=== PATIENT | male | born 1995 | race Caucasian/White ===

== ENCOUNTER → 2017-06-04 | Outpatient (CLI) | payer MEDICAID | LOC: CANPRECLI → M OUTALCOH 12:44 | PROVIDERS: ATTEND Psychiatry & Neurology Psychiatry | DX: Z53.9 Procedure and treatment not carried out, unspecified reason (principal) ==

== ENCOUNTER → 2017-06-10 | Outpatient (CLI) | payer MEDICAID | LOC: M OUTALCOH 07:39 | PROVIDERS: ATTEND Psychiatry & Neurology Psychiatry | DX: F11.20 Opioid dependence, uncomplicated (principal); F15.20 Other stimulant dependence, uncomplicated ==

== ENCOUNTER 2017-06-24 08:32 | Outpatient (RCR) | payer MEDICAID | END 2017-06-25 | LOC: M OUTALCOH 08:32 | PROVIDERS: ATTEND Psychiatry & Neurology Psychiatry | DX: F11.20 Opioid dependence, uncomplicated (principal); F15.20 Other stimulant dependence, uncomplicated ==

== ENCOUNTER 2017-07-09 08:00 | Outpatient (RCR) | payer MEDICAID | END 2017-07-25 | LOC: M OUTALCOH 08:00 | PROVIDERS: ATTEND Psychiatry & Neurology Psychiatry | DX: F11.20 Opioid dependence, uncomplicated (principal); F15.20 Other stimulant dependence, uncomplicated ==

== ENCOUNTER → 2017-09-10 | Outpatient (CLI) | payer MEDICAID | LOC: M OUTALCOH 12:47 | PROVIDERS: ATTEND Psychiatry & Neurology Psychiatry | DX: F11.20 Opioid dependence, uncomplicated (principal) ==

== ENCOUNTER 2017-09-30 13:55 | Outpatient (RCR) | payer MEDICAID | END 2017-10-25 | LOC: M OUTALCOH 10-06 16:00 | DX: F11.20 Opioid dependence, uncomplicated (principal); F15.20 Other stimulant dependence, uncomplicated ==

== ENCOUNTER 2017-11-06 11:19 | Outpatient (RCR) | payer MEDICAID | END 2017-11-25 | LOC: M OUTALCOH 11:19 | DX: F11.20 Opioid dependence, uncomplicated (principal); F15.20 Other stimulant dependence, uncomplicated ==

== ENCOUNTER → 2018-08-02 | Outpatient (CLI) | payer MEDICAID | LOC: M OUTALCOH 13:36 | DX: Z13.89 Encounter for screening for other disorder (principal); F11.20 Opioid dependence, uncomplicated ==

== ENCOUNTER 2022-02-02 17:42 | Inpatient (IN) | payer MEDICAID ==
[~2022-02-02] VITALS: Ht 177.8 cm; Wt 59.1 kg
[2022-02-02 19:35] LABS: HEMATOCRIT 47.9 % (42.0-52.0); HEMOGLOBIN 16.3 g/dl (13.5-17.5); MEAN CORPUSCULAR HEMOGLOBIN 29.5 pg (27.0-33.0); MEAN CORPUSCULAR VOLUME 86.6 fl (80.0-96.0); PLATELET COUNT, AUTOMATED 170 10^3/uL (150-450); RED BLOOD COUNT 5.53 10^6/uL (4.30-6.10); WHITE BLOOD COUNT 5.1 10^3/uL (4.0-10.0)
[2022-02-02 19:54] LABS: AMPHETAMINES LEVEL URINE POSITIVE (NEGATIVE); BARBITURATES URINE NEGATIVE (NEGATIVE); BENZODIAZEPINES URINE NEGATIVE (NEGATIVE); CANNABINOIDS URINE NEGATIVE (NEGATIVE); COCAINE METABOLITE URINE NEGATIVE (NEGATIVE); METHADONE URINE NEGATIVE (NEGATIVE); OPIATES URINE NEGATIVE (NEGATIVE); PHENCYCLIDINE URINE NEGATIVE (NEGATIVE)
[2022-02-02 20:00] LABS: ACETAMINOPHEN LEVEL < 2.0 UG/ML (10.0-30.0); ALBUMIN 4.2 GM/DL (3.2-5.2); ALT/SGPT 21 U/L (12-78); BILIRUBIN,DIRECT 0.1 MG/DL (0.0-0.2); BILIRUBIN,TOTAL 0.6 MG/DL (0.2-1.0); BLOOD UREA NITROGEN 10 MG/DL (7-18); CALCIUM LEVEL 9.2 MG/DL (8.5-10.1); CARBON DIOXIDE LEVEL 26 MEQ/L (21-32); CHLORIDE LEVEL 110 MEQ/L (98-107); CREATININE FOR GFR 1.14 MG/DL (0.70-1.30); ETHYL ALCOHOL (ETHANOL) < 0.003 % (0.000-0.010); GLOMERULAR FILTRATION RATE > 60.0 (>60); GLUCOSE, FASTING 83 MG/DL (70-100); SALICYLATE LEVEL < 1.7 MG/DL (5.0-30.0); SODIUM LEVEL 145 MEQ/L (136-145); TOTAL PROTEIN 6.9 GM/DL (6.4-8.2)
[2022-02-02 23:20] LABS: RSV AMPLIFICATION NEGATIVE (NEGATIVE)
[2022-02-03] MEDS ORDERED: HOME MED LIST COMPLETE! XX SCH
[2022-02-03] MEDS: NICOTINE 21MG/24HR 1 EA TRANSDERMAL TD SCH ×2 (09:00→17:28)
[2022-02-03] MEDS ORDERED: MOM 30ML SUSPENSION UDC PO PRN (12:55)
[2022-02-03] MEDS ORDERED: ACETAMINOPHEN TAB 650MG DOSE (2X325MG) PO PRN (12:55)
[2022-02-03] MEDS ORDERED: diphenhydrAMINE 25MG CAP PO PRN (12:55)
[2022-02-03] MEDS ORDERED: MAALOX 30 ML SUSP *UDC PO PRN (12:55)
[2022-02-03] MEDS: OLANZapine ORAL DISINTEGRATING TAB 5MG PO PRN (17:26)
[2022-02-03 22:48] VITALS: BP 101/68
[2022-02-04 06:25] VITALS: BP 105/61
[2022-02-04] MEDS: NICOTINE 21MG/24HR 1 EA TRANSDERMAL TD SCH ×2 (10:30→15:22)
[2022-02-04] MEDS ORDERED: hydrOXYzine 50 MG TAB PO PRN (11:10)
[2022-02-04] MEDS: OLANZapine ORAL DISINTEGRATING TAB 5MG PO PRN (15:23)
[2022-02-04 16:29] VITALS: BP 118/75
[2022-02-05 06:50] VITALS: BP 155/66
[2022-02-05] MEDS: NICOTINE 21MG/24HR 1 EA TRANSDERMAL TD SCH (09:13)
== END 2022-02-05 12:27 | disposition home or self-care (01) | DRG 774 ==
LOC: M ED 17:42 → M ED INP 02-03 12:53 → M PSY 02-03 21:39
PROVIDERS: ADMIT Student in an Organized Health Care Education/Training Program; ATTEND Psychiatry & Neurology Psychiatry
DX: F15.959 Other stimulant use, unspecified with stimulant-induced psychotic disorder, unspecified (principal); F14.90 Cocaine use, unspecified, uncomplicated; F17.210 Nicotine dependence, cigarettes, uncomplicated

== ENCOUNTER 2022-05-17 07:33 | Emergency (ER) | payer MEDICAID, OTHER ==
[~2022-05-17] VITALS: Ht 180.3 cm; Wt 56.8 kg
[2022-05-17 08:44] LABS: BASO % 0.3 % (0.0-1.0); EOS % 0.2 % (0.0-3.0); HEMATOCRIT 43.9 % (42.0-52.0); HEMOGLOBIN 14.8 g/dl (13.5-17.5); LYMPH # 0.2 10^3/uL (1.5-5.0); LYMPH % 3.4 % (24.0-44.0); MEAN CORPUSCULAR HGB CONC 33.7 g/dl (32.0-36.5); MEAN CORPUSCULAR VOLUME 88.9 fl (80.0-96.0); MONO # 0.1 10^3/uL (0.0-0.8); MONO % 0.8 % (2.0-8.0); NEUTROPHILS # 6.2 10^3/uL (1.5-8.5); NEUTROPHILS % 94.8 % (36.0-66.0); PLATELET COUNT, AUTOMATED 115 10^3/uL (150-450); RED BLOOD COUNT 4.94 10^6/uL (4.30-6.10); WHITE BLOOD COUNT 6.5 10^3/uL (4.0-10.0)
[2022-05-17 09:09] LABS: ALBUMIN 3.7 GM/DL (3.2-5.2); BILIRUBIN,DIRECT 0.3 MG/DL (0.0-0.2); BILIRUBIN,TOTAL 0.7 MG/DL (0.2-1.0); CK-MB VALUE MASS < 1.0 NG/ML (<3.6); CPK CREATINE PHOSPHOKINASE 119 U/L (39-308); MB/CK RELATIVE INDEX 0.84 (< OR =4); TOTAL PROTEIN 5.8 GM/DL (6.4-8.2)
[2022-05-17] MEDS ORDERED: ISOVUE-370 76% 100ML VIAL As Ordered ONE (09:30)
[2022-05-17 10:04] LABS: RSV AMPLIFICATION NEGATIVE (NEGATIVE)
[2022-05-17 11:01] LABS: AMPHETAMINES LEVEL URINE POSITIVE (NEGATIVE); BARBITURATES URINE NEGATIVE (NEGATIVE); BENZODIAZEPINES URINE NEGATIVE (NEGATIVE); CANNABINOIDS URINE NEGATIVE (NEGATIVE); COCAINE METABOLITE URINE NEGATIVE (NEGATIVE); METHADONE URINE NEGATIVE (NEGATIVE); OPIATES URINE NEGATIVE (NEGATIVE); PHENCYCLIDINE URINE NEGATIVE (NEGATIVE)
[2022-05-17 11:05] VITALS: BP 90/54
== END 2022-05-17 11:51 | disposition home or self-care (01) ==
LOC: M ED 07:33
DX: R07.9 Chest pain, unspecified (principal); R06.02 Shortness of breath; M54.9 Dorsalgia, unspecified; F19.10 Other psychoactive substance abuse, uncomplicated; F17.290 Nicotine dependence, other tobacco product, uncomplicated; F17.200 Nicotine dependence, unspecified, uncomplicated
CPT/HCPCS: 70450; 71046; 71275; 80047; 80076; 80307; 81001; 82550; 82553; 83690; 85025; 85379; 87631; 93005; 99284; Q9967

== ENCOUNTER 2022-12-05 18:07 | Emergency (ER) | payer MEDICAID, OTHER ==
[~2022-12-05] VITALS: Ht 177.8 cm; Wt 67.5 kg
[2022-12-05 18:08] VITALS: BP 130/74
[2022-12-05] MEDS ORDERED: hydrOXYzine 50 MG TAB PO STA (22:32)
[2022-12-05 23:15] LABS: BASO % 0.8 % (0.0-1.0); EOS # 0.1 10^3/uL (0.0-0.5); HEMATOCRIT 43.2 % (42.0-52.0); HEMOGLOBIN 14.4 g/dl (13.5-17.5); LYMPH # 1.8 10^3/uL (1.5-5.0); LYMPH % 36.7 % (24.0-44.0); MEAN CORPUSCULAR HEMOGLOBIN 29.7 pg (27.0-33.0); MEAN CORPUSCULAR HGB CONC 33.3 g/dl (32.0-36.5); MEAN CORPUSCULAR VOLUME 89.1 fl (80.0-96.0); MONO # 0.7 10^3/uL (0.0-0.8); MONO % 13.2 % (2.0-8.0); NEUTROPHILS # 2.4 10^3/uL (1.5-8.5); NEUTROPHILS % 46.9 % (36.0-66.0); PLATELET COUNT, AUTOMATED 209 10^3/uL (150-450); RED BLOOD COUNT 4.85 10^6/uL (4.30-6.10)
[2022-12-05 23:37] LABS: CK-MB VALUE MASS < 1.0 NG/ML (<3.6)
[2022-12-05 23:38] LABS: CPK CREATINE PHOSPHOKINASE 195 U/L (46-171); MB/CK RELATIVE INDEX 0.51 (< OR =4)
[2022-12-05 23:39] LABS: BLOOD UREA NITROGEN 9 MG/DL (9-23); CALCIUM LEVEL 9.2 MG/DL (8.5-10.1); CARBON DIOXIDE LEVEL 27 MMOL/L (20-31); CHLORIDE LEVEL 104 MMOL/L (98-107); CREATININE FOR GFR 0.98 MG/DL (0.70-1.30); GLOMERULAR FILTRATION RATE > 60.0 (>60); GLUCOSE, FASTING 86 MG/DL (60-100); MAGNESIUM LEVEL 1.8 MG/DL (1.8-2.4); POTASSIUM SERUM 3.7 MMOL/L (3.5-5.1); SODIUM LEVEL 138 MMOL/L (136-145)
[2022-12-05 23:42] LABS: THYROID STIMULATING HORMONE 2.751 uIU/ML (0.55-4.78)
[2022-12-05] MEDS ORDERED: HYDR-3363 PO (23:43)
== END 2022-12-05 23:50 | disposition home or self-care (01) ==
LOC: M ED 18:07
DX: F41.9 Anxiety disorder, unspecified (principal); I45.10 Unspecified right bundle-branch block; F51.01 Primary insomnia; Z79.811 Long term (current) use of aromatase inhibitors

== ENCOUNTER 2023-01-22 23:48 | Emergency (ER) | payer MEDICAID ==
[~2023-01-22] VITALS: Ht 177.8 cm; Wt 68.7 kg
[~2023-01-22 23:48] MED LIST: HYDR-3363 PO
[2023-01-22 23:50] VITALS: BP 144/83
[2023-01-23] MEDS ORDERED: AMOXICILLIN 500 MG CAP PO ONE (00:10)
[2023-01-23] MEDS ORDERED: AMOX500C PO (00:10)
[2023-01-23] MEDS ORDERED: IBUPROFEN 800 MG TAB PO ONE (00:10)
== END 2023-01-23 00:45 | disposition home or self-care (01) ==
LOC: M ED 23:48
DX: H66.91 Otitis media, unspecified, right ear (principal); F17.200 Nicotine dependence, unspecified, uncomplicated

== ENCOUNTER 2025-06-12 09:04 | Emergency (ER) | payer OTHER, MEDICAID ==
[~2025-06-12] VITALS: Ht 177.8 cm; Wt 56.0 kg
[~2025-06-12 09:04] MED LIST changes: +AMOX500C PO
[2025-06-12 09:07] VITALS: BP 124/74; TEMP 98.5; O2SAT 97
[2025-06-12] MEDS ORDERED: BUPR1SUB35 (09:15)
== END 2025-06-12 10:27 | disposition home or self-care (01) ==
LOC: M ED 09:04
DX: S51.811A Laceration without foreign body of right forearm, initial encounter (principal); W26.8XXA Contact with other sharp object(s), not elsewhere classified, initial encounter; Y92.89 Other specified places as the place of occurrence of the external cause; Y93.9 Activity, unspecified; Y99.0 Civilian activity done for income or pay; F19.10 Other psychoactive substance abuse, uncomplicated